=== PATIENT | male | born 1995 | race African-American/Black ===

== ENCOUNTER 2022-07-16 21:40 | Emergency (ER) | payer SELFPAY ==
[~2022-07-16] VITALS: Ht 180.3 cm; Wt 115.9 kg
[2022-07-16 22:04] VITALS: TEMP 97.9
[2022-07-16] MEDS ORDERED: CLEOCIN HCL300 MG PO (22:57)
[2022-07-16 23:08] VITALS: BP 153/82; PULSE 78
== END 2022-07-16 23:15 | disposition home or self-care (01) ==
LOC: COL.ER 21:40
DX: K04.7 Periapical abscess without sinus (principal); F17.210 Nicotine dependence, cigarettes, uncomplicated; Z28.310 Unvaccinated for COVID-19

== ENCOUNTER 2022-07-17 12:52 | Emergency (ER) | payer SELFPAY ==
[~2022-07-17] VITALS: Ht 182.9 cm; Wt 114.5 kg
[~2022-07-17 12:52] MED LIST: CLEOCIN HCL300 MG PO
[2022-07-17 13:10] VITALS: TEMP 98.1
[2022-07-17 14:05] VITALS: BP 149/86; PULSE 75
== END 2022-07-17 14:05 | disposition home or self-care (01) ==
LOC: COL.ER 12:52
DX: K04.7 Periapical abscess without sinus (principal); F17.200 Nicotine dependence, unspecified, uncomplicated; Z28.310 Unvaccinated for COVID-19